=== PATIENT | female | born 1935 | race Hispanic/Latino ===

== ENCOUNTER 2018-07-20 11:06 | Emergency (ER) | payer MEDICARE ==
[2018-07-20 11:09] VITALS: BMI 33.7
[2018-07-20] MEDS ORDERED: Sodium Chloride 0.9% 1,000 ML IV STA (11:54)
--- NOTE | 2018-07-20 12:10 | ED PDOC ---
HPI: Abdomen Time Seen by Provider: 07/20/18 11:30 Chief Complaint (Nursing): Abdominal Pain Chief Complaint (Provider): Abdominal pain History Per: Patient History/Exam Limitations: no limitations Outside of [place] travel?: No Current Symptoms Are (Timing): Still Present Location Of Pain/Discomfort: Epigastric Associated Symptoms: Diarrhea (1 episode loose stool) Additional Complaint(s): 82yo female, with history of hypertension, CAD, 2x coronary stents, comes to ER reporting epigastric abdominal pain with associated nausea. Patient states she had 3 bowel movements this morning and states the last episode was loose and watery. She eports associated chills and describes the abdominal pain as a "soreness." Otherwise, no chest pain, shortness of breath, vomiting, back pain, urinary symptoms. No additional complaints. Of note, patient states she has a history of c.diff, was diagnosed in 2013 and treated with IV Vancomycin. She denies any recent antibiotics treatment. PMD: [place] Past Medical History Reviewed: Historical Data, Nursing Documentation, Vital Signs Vital Signs: Last Vital Signs Temp 98 F 07/20/18 11:09 Pulse 76 07/20/18 11:09 Resp 20 07/20/18 11:09 BP 162/91 H 07/20/18 11:09 Pulse Ox 97 07/20/18 11:09 - Medical History PMH: CAD, Diabetes (borderline), Hiatal Hernia, HTN - Surgical History Surgical History: Coronary Stent (x 2) - Family History Family History: States: No Known Family Hx - Home Medications Home Medications: Ambulatory Orders Medication Instructions Recorded Ciprofloxacin HCl [Cipro] 500 mg PO BID #14 tablet 07/20/18 Metronidazole [Flagyl] 500 mg PO BID #14 tablet 07/20/18 - Allergies Allergies/Adverse Reactions: Allergies Allergy/AdvReac Type Severity Reaction Status Date / Time Fish Containing Products Allergy ANAPHYLAXIS Verified 07/20/18 11:23 Iodinated Contrast- Oral and Allergy ANAPHYLAXIS Verified 07/20/18 11:23 IV Dye Review of Systems ROS Statement: Except As Marked, All Systems Reviewed And Found Negative Constitutional: Positive for: Chills. Negative for: Fever Cardiovascular: Negative for: Chest Pain Respiratory: Negative for: Cough, Shortness of Breath Gastrointestinal: Positive for: Nausea, Abdominal Pain. Negative for: Vomiting Physical Exam - Reviewed Nursing Documentation Reviewed: Yes Vital Signs Reviewed: Yes - Physical Exam Appears: Positive for: Non-toxic, No Acute Distress Head Exam: Positive for: ATRAUMATIC, NORMAL INSPECTION, NORMOCEPHALIC Skin: Positive for: Normal Color Eye Exam: Positive for: Normal appearance, EOMI, PERRL Neck: Positive for: Normal, Supple Cardiovascular/Chest: Positive for: Regular Rate, Rhythm Respiratory: Positive for: Normal Breath Sounds Pulses-Radial (L): 2+ Pulses-Radial (R): 2+ Gastrointestinal/Abdominal: Positive for: Soft, Tenderness (epigastric tendereness, left lower quadrant tenderness). Negative for: Guarding, Rebound Back: Positive for: Normal Inspection. Negative for: L CVA Tenderness, R CVA Tenderness Extremity: Positive for: Normal ROM Neurologic/Psych: Positive for: Alert, Oriented. Negative for: Motor/Sensory Deficits - Laboratory Results Result Diagrams: 07/20/18 12:15 07/20/18 12:00 - ECG O2 Sat by Pulse Oximetry: 97 (RA) Pulse Ox Interpretation: Normal Medical Decision Making Medical Decision Making: Impression: Abdominal pain Differential: Acute pancreatitis, cholecystitis, colitis, SBO, other abdominal pathologies considered but not listed UTI Plan: -- labs -- Urinalysis -- UA -- EKG -- CT A/P w/o contrast -- Zofran 4mg IV -- Pepcid 20mg IV -- IV Fluids 1330 Labs reviewed, no clinically significant abnormalities noted. UA shows microhematuria, per patient this is a chronic condition. Patient pending CT A/P report 1414 CT Abdomen/Pelvis FINDINGS: LOWER THORAX: There is a 7 mm subpleural nodule in the right lateral lung base (series 2, image 17). There is discoid atelectasis in the left lower lobe. LIVER: Mild hepatomegaly and fatty liver. No ductal dilatation. GALLBLADDER AND BILE DUCTS: No calcified gallstones. PANCREAS: Normal in size. No gross lesion or ductal dilatation. SPLEEN: Normal in size. ADRENALS: Unremarkable. No mass. KIDNEYS AND URETERS: Both kidneys are normal in size. There is a 5 mm nonobstructing stone in the lower pole of the left kidney. No hydronephrosis. VASCULATURE: No aortic aneurysm. There are aortic atherosclerotic calcifications present. BOWEL: The stomach is decompressed. The small bowel loops are normal in caliber. There is colonic diverticulosis. There is moderate circumferential mural thickening in the sigmoid colon with pericolonic inflammatory changes. No evidence for micro perforation or abscess. APPENDIX: Normal appendix. PERITONEUM: No free fluid. No free air. LYMPH NODES: No enlarged lymph nodes. BLADDER: Normal in appearance. REPRODUCTIVE: The uterus is normal in size. BONES: No acute fracture. There is diffuse bone demineralization and multilevel degenerative changes in the spine. OTHER FINDINGS: None. IMPRESSION: 1. Acute sigmoid diverticulitis. No evidence for microperforation or abscess. 2. 5 mm nonobstructing stone in the lower pole of the left kidney. 3. Mild hepatomegaly and fatty liver. Based on CT findings, IV Cipro and flagyl ordered PO challenge ordered Patient informed of findings as well. 1428 Case discussed with Rocky Silverman, who states patient to follow up in the office tomorrow with Dr. Elizondo Patient also instructed to follow up with Dr. Saucedo for GI. Plan for discharge discussed with patient, who expresses understanding and is agreeable. Scribe Attestation: Documented by Rika Billings acting as a scribe for Nallely Rosario MD. Provider Attestation: All medical record entries made by the Scribe were at my direction and personally dictated by me. I have reviewed the chart and agree that the record accurately reflects my personal performance of the history, physical exam, medical decision making, and the department course for this patient. I have also personally directed, reviewed, and agree with the discharge instructions and disposition. Disposition - Clinical Impression Clinical Impression: Acute diverticulitis - Patient ED Disposition Is Patient to be Admitted: No Doctor Will See Patient In The: Office Counseled Patient/Family Regarding: Studies Performed, Diagnosis, Need For Followup - Disposition Referrals: Klever Elizondo MD [Medical Doctor] - Chip Saucedo MD, PhD [Staff Provider] - Disposition: Routine/Home Disposition Time: 14:30 Condition: GOOD Additional Instructions: [employer], thank you for letting us take care of you today. Your provider was Nallely Rosario MD and you were treated for ABD PAIN. The emergency medical care you received today was directed at your acute symptoms. If you were prescribed any medication, please fill it and take as directed. It may take several days for your symptoms to resolve. Return to the Emergency Department if your symptoms worsen, do not improve, or if you have any other problems. Please contact your doctor or call one of the physicians/clinics you have been referred to that are listed on the Patient Visit Information form that is incl uded in your discharge packet. Bring any paperwork you were given at discharge with you along with any medications you are taking to your follow up visit. Our treatment cannot replace ongoing medical care by a primary care provider outside of the emergency department. Thank you for allowing the [facility] team to be part of your care today. If you had an X-Ray or CT scan: A Radiologist will review the ED reading if any change in treatment is needed we will contact you. If you had a blood, urine, or wound culture: It will take several days for the results, if any change in treatment is needed we will contact you. If you had an STI test: It will take 48 hours for the results. Please call after 1 week if you have not heard back. Prescriptions: Ciprofloxacin HCl [Cipro] 500 mg PO BID #14 tablet Metronidazole [Flagyl] 500 mg PO BID #14 tablet Instructions: Diverticulitis (DC) Forms: [employer] ([place])
[2018-07-20 12:28] LABS: BASO % 0.3 % (0.0-2.0); EOS % 0.6 % (0.0-4.0); HEMOGLOBIN 14.3 g/dL (12.0-16.0); LYMPH # 1.5 K/uL (1.0-4.3); LYMPH % 17.6 % (20.0-40.0); MEAN CELL VOLUME 89.6 fl (81.0-99.0); MEAN CORPUSCULAR HEMOGLOBIN 29.5 pg (27.0-31.0); MEAN CORPUSCULAR HGB CONC 32.9 g/dL (33.0-37.0); MEAN PLATELET VOLUME 10.6 fl (7.2-11.7); MONO # 0.7 K/uL (0.0-0.8); NEUT # 6.3 K/uL (1.8-7.0); NEUT % 73.5 % (50.0-75.0); NRBC % 0.1 % (0.0-0.0); RBC 4.84 Mil/uL (3.80-5.20); RED CELL DISTRIBUTION WIDTH 14.7 % (11.5-14.5); WHITE BLOOD COUNT 8.5 K/uL (4.8-10.8)
[2018-07-20 12:41] LABS: ALB/GLOB RATIO 1.1 (1.0-2.1); ALT/SGPT 24 U/L (9-52); AST/SGOT 21 U/L (14-36); BLOOD UREA NITROGEN 16 mg/dl (7-17); CALCIUM 9.9 mg/dL (8.4-10.2); GFR NON-AFRICAN AMERICAN > 60; LIPASE 42 U/L (23-300)
[2018-07-20 13:26] LABS: SQUAMOUS EPITHIAL < 1 /hpf (0-5); URINE BACTERIA RARE (<OCC); URINE BILIRUBIN NEGATIVE (NEGATIVE); URINE BLOOD MODERATE (NEGATIVE); URINE CLARITY CLEAR (Clear); URINE COLOR YELLOW (YELLOW); URINE GLUCOSE (UA) NEG (NEGATIVE); URINE LEUKOCYTE ESTERASE SMALL Leu/uL (Negative); URINE PROTEIN NEGATIVE (NEGATIVE); URINE UROBILINOGEN 0.2-1.0 mg/dL (0.2-1.0)
--- NOTE | 2018-07-20 14:09 | CT ---
Date of service: 07/20/2018 PROCEDURE: CT Abdomen and Pelvis without intravenous contrast HISTORY: epigastric pain nausea COMPARISON: None. TECHNIQUE: CT scan of the abdomen and pelvis was performed without administration of intravenous contrast. Oral contrast was not administered. Coronal and sagittal reformatted images were obtained. Radiation dose: Total exam DLP = 764.4 mGy-cm. This CT exam was performed using one or more of the following dose reduction techniques: Automated exposure control, adjustment of the mA and/or kV according to patient size, and/or use of iterative reconstruction technique. FINDINGS: LOWER THORAX: There is a 7 mm subpleural nodule in the right lateral lung base (series 2, image 17). There is discoid atelectasis in the left lower lobe. LIVER: Mild hepatomegaly and fatty liver. No ductal dilatation. GALLBLADDER AND BILE DUCTS: No calcified gallstones. PANCREAS: Normal in size. No gross lesion or ductal dilatation. SPLEEN: Normal in size. ADRENALS: Unremarkable. No mass. KIDNEYS AND URETERS: Both kidneys are normal in size. There is a 5 mm nonobstructing stone in the lower pole of the left kidney. No hydronephrosis. VASCULATURE: No aortic aneurysm. There are aortic atherosclerotic calcifications present. BOWEL: The stomach is decompressed. The small bowel loops are normal in caliber. There is colonic diverticulosis. There is moderate circumferential mural thickening in the sigmoid colon with pericolonic inflammatory changes. No evidence for micro perforation or abscess. APPENDIX: Normal appendix. PERITONEUM: No free fluid. No free air. LYMPH NODES: No enlarged lymph nodes. BLADDER: Normal in appearance. REPRODUCTIVE: The uterus is normal in size. BONES: No acute fracture. There is diffuse bone demineralization and multilevel degenerative changes in the spine. OTHER FINDINGS: None. IMPRESSION: 1. Acute sigmoid diverticulitis. No evidence for microperforation or abscess. 2. 5 mm nonobstructing stone in the lower pole of the left kidney. 3. Mild hepatomegaly and fatty liver.
[2018-07-20] MEDS ORDERED: Ciprofloxacin 400mg/200ml D5W 400 MG/200 ML BAG IVPB STA (14:14)
[2018-07-20] MEDS ORDERED: metroNIDAZOLE 500mg/100ml NS 1,000 MG in Premixed IV 1 EA IVPB SCH (14:15)
[2018-07-20] MEDS ORDERED: metroNIDAZOLE 500mg/100ml NS 1,000 MG in Premixed IV 1 EA IVPB ONE (14:30)
[2018-07-20] MEDS ORDERED: PREMIXED IVPB ONE (14:30)
[2018-07-20] MEDS ORDERED: NS 500 MG IVPB ONE (14:30)
[2018-07-20] MEDS ORDERED: METRONIDAZOLE IVPB ONE (14:30)
[2018-07-20] MEDS ORDERED: Ciprofloxacin 400mg/200ml D5W 400 MG/200 ML BAG IVPB ONE (14:49)
[2018-07-20] MEDS ORDERED: metroNIDAZOLE 500mg/100ml NS 100 ML IVPB ONE ×2 (16:34→16:45)
[2018-07-20 18:31] VITALS: BP 137/90; PULSE 73; RESP 20; TEMP 98.5; O2SAT 98
--- NOTE | 2018-07-20 20:30 | CARD ---
APPROVED REPORT Date of service: 07/20/2018 EKG Measurement Heart [id number] <Conclusion> Normal sinus rhythm Nonspecific ST abnormality Abnormal ECG
== END 2018-07-20 18:30 | disposition home or self-care (01) ==
LOC: H.ER 11:06
DX: K57.32 Diverticulitis of large intestine without perforation or abscess without bleeding (principal); N20.0 Calculus of kidney; K76.0 Fatty (change of) liver, not elsewhere classified; I10 Essential (primary) hypertension; I25.10 Atherosclerotic heart disease of native coronary artery without angina pectoris; Z88.8 Allergy status to other drugs, medicaments and biological substances; Z95.5 Presence of coronary angioplasty implant and graft
CPT/HCPCS: 74176; 80053; 81003; 83690; 84484; 85025; 87040; 93005; 96361; 96365; 96367; 96375; 99285; J0744; J2405; J7030